=== PATIENT | male | born 2000 | race Caucasian/White ===

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

== ENCOUNTER → 2023-01-01 | Outpatient (CLI) | payer BC ==
[~2023-01-01] MED LIST changes: +CATHETER FLUSH 10 ML SYR IV PRN; +HOLD METFORMIN - RECEIVED CONTRAST 20 ML VIAL IV SCH; +IOHEXOL 350 MG/ML 100 ML (OMNIPAQUE 350) VIAL IV ONE; +NS 100 ML (IVPB) BAG IV ONE; +OMEP20CA18 PO
--- NOTE | 2023-01-01 16:23 | Diagnostic Imaging Report ---
INDICATION: Frequent urination, urinary tract infection. TECHNIQUE: Precontrast acquisitions were acquired through the abdomen and pelvis. Multiple contiguous axial images were obtained through the abdomen and pelvis after the administration of intravenous contrast. Auto Exposure Controls were utilized during the CT exam to meet ALARA standards for radiation dose reduction. COMPARISON: Comparison made with 10/07/2010. FINDINGS: The visualized portions of the lung bases are clear. There were no pleural fluid collections. There is no free intraperitoneal air. The liver and gallbladder appear normal. The spleen, adrenals, and pancreas appear normal. The kidneys bilaterally appear unremarkable. There is no retroperitoneal mass or adenopathy. There is no ascites or abnormal fluid collection. Visualized bowel loops show no overt obstruction. There is prominent stool throughout the colon. Urinary bladder appears grossly unremarkable. IMPRESSION: Negative CT the abdomen and pelvis. Dictated by: Dictated on workstation # [id number]
== END ==
LOC: RAD 12:41
PROVIDERS: ATTEND Registered Nurse Critical Care Medicine
DX: N39.0 Urinary tract infection, site not specified (principal); N20.0 Calculus of kidney; R35.0 Frequency of micturition; R11.0 Nausea; M54.89 Other dorsalgia; R39.15 Urgency of urination; R39.12 Poor urinary stream; R80.0 Isolated proteinuria
CPT/HCPCS: 74178

== ENCOUNTER → 2023-05-03 | Outpatient (CLI) | payer BC ==
[~2023-05-03] MED LIST changes: -CATHETER FLUSH 10 ML SYR IV PRN; +GADOTERATE 0.5 MMOL/ML (CLARISCAN) 20 ML VIAL IV ONE; -HOLD METFORMIN - RECEIVED CONTRAST 20 ML VIAL IV SCH; -IOHEXOL 350 MG/ML 100 ML (OMNIPAQUE 350) VIAL IV ONE; -NS 100 ML (IVPB) BAG IV ONE
--- NOTE | 2023-05-03 15:18 | Diagnostic Imaging Report ---
PROCEDURE: MRI lumbar spine with and without contrast. TECHNIQUE: Multiplanar, multisequence MRI of the lumbar spine was performed with and without contrast. INDICATION: Urinary retention. COMPARISON: No priors. The study is correlated with CT abdomen and pelvis dated 01/01/2023. FINDINGS: The lower thoracic cord and conus appeared normal. No acute intrathecal or epidural pathology. There is normal dispersal of the nerves of the cauda equina. No paravertebral mass, hemorrhage or fluid collection. The lumbar spinal canal widely patent throughout. No bony destruction or marrow edema. No abnormal enhancement after contrast. No findings to suggest infection or neoplasm. There is minimal degenerative changes to the L5-S1 disc, slightly desiccated with a very mild circumferential bulge but no resultant stenosis. IMPRESSION: Unremarkable pre and post contrasted lumbar MR. Dictated by: Dictated on workstation # [id number]
== END ==
LOC: RAD 09:49
PROVIDERS: ATTEND Family Medicine
DX: M62.89 Other specified disorders of muscle (principal); N39.42 Incontinence without sensory awareness; R15.2 Fecal urgency; R15.9 Full incontinence of feces
CPT/HCPCS: 72158

== ENCOUNTER 2023-06-29 11:35 | Outpatient (RCR) | payer BC ==
[~2023-06-29] VITALS: Ht 177.8 cm; Wt 135.0 kg
[~2023-06-29 11:35] MED LIST changes: -GADOTERATE 0.5 MMOL/ML (CLARISCAN) 20 ML VIAL IV ONE
[2023-06-29] MEDS ORDERED: VANCOMYCIN 1 GM/NS 250 ML IVPB IV SCH ×2 (12:00)
[2023-06-29] MEDS ORDERED: VANCOMYCIN 1000 MG/VIAL ONE (12:03)
[2023-06-29] MEDS ORDERED: NS (IVPB) 250 ML 250 ML ONE (12:03)
[2023-06-29 12:22] VITALS: BP 129/79
[2023-06-29 13:34] VITALS: BP 127/76
== END 2023-06-29 13:00 | disposition home or self-care (01) ==
LOC: SDC 11:35
PROVIDERS: ATTEND Family Medicine
DX: Z01.89 Encounter for other specified special examinations (principal)
CPT/HCPCS: 96365